=== PATIENT | female | born 2000 | race African-American/Black ===

== ENCOUNTER 2022-03-28 12:21 | Emergency (ER) | payer OTHER, SELFPAY ==
[2022-03-28] VITALS (43 sets, daily range): BP systolic 103–119; BP diastolic 49–80; PULSE 88–144; RESP 18; TEMP 36.4–38.4; O2SAT 97–100; BMI 24.8
--- NOTE | 2022-03-28 12:41 | ED_ITS ---
HPI - General Adult General Date Seen: 03/28/22 Chief complaint: Fever Stated complaint: Dizzy, Fever, Headache Time Seen by Provider: 03/28/22 12:23 Source: patient Mode of arrival: ambulatory Limitations: no limitations History of Present Illness HPI narrative: Patient is a 21-year-old [employer] student who presents for evaluation of fever which started 4 days ago. She notes headache, nausea and vomiting for the past couple of days. She has had some ear pain as well as some shortness of breath. She denies chest pain or cough. She has not had abdominal pain. She has not had neck pain or rash. No easy bruising or bleeding. She has not had sore throat. She is vaccinated for COVID and reports that she has had a negative test at school. She denies urinary symptoms or diarrhea. She did just return back to school from [facility], where she lives. She denies ill contacts there. She has a remote history of malaria, not since she was a child. She did not take medications for malaria. She does note that they have ticks there. She has tried some Tylenol and aspirin and does not feel that that was very helpful. General health is good, she has mild asthma, tried her inhaler on Wednesday but has not used it since. She does not take any other medications. She denies use of tobacco, vaping or other marijuana use. Denies other drug use or significant alcohol use. Related Data Home Medications Medication Instructions Recorded Confirmed No Known Home Medications 03/28/22 03/28/22 Allergies Allergy/AdvReac Type Severity Reaction Status Date / Time No Known Drug Allergies Allergy Verified 03/28/22 12:27 Review of Systems Status of ROS: Reports: 10 or more systems reviewed and unremarkable except as noted in History and below [facility] Social History Smoking Status: Never smoker Do you use any of these nicotine containing products: None Second hand tobacco smoke exposure: No How often do you have a drink containing alcohol: never AUDIT-C Alcohol total score: 0 Non-prescribed substance use: denies use Exam Narrative: Exam Narrative: Vital signs as noted above. In general, an alert, nontoxic young woman, she is slightly tearful, a little bit anxious, but appears not to feel well. Head: Normocephalic, atraumatic. Eyes: Pupils are equal reactive. Extraocular movements are full. Conjunctivae are normal. ENT: Mucous membranes are slightly dry, throat is normal, TMs normal bilaterally. Neck: Supple without meningeal signs or adenopathy. No stridor. Heart: Tachycardic, regular. No murmur. Lungs: Clear bilaterally. No increased work of breathing, crackles or wheezes. Abdomen: Soft and nontender. No organomegaly. Extremities: Well perfused. No edema. No calf tenderness. Pulses intact. Neurologic: Patient is alert and oriented to person and place. Speech is fluent. Face is symmetric. Moves all extremities equally. Affect: Normal. Skin: Warm and dry. Well perfused. No rashes. Const: Vital Signs, click to edit/add: Vital Signs - 24 hr 03/28/22 12:24 03/28/22 12:37 03/28/22 13:39 Temperature 101.1 F H 101 F H 101.2 F H Pulse Rate 111 H Pulse Rate [Right Pulse Oximeter] 144 H Respiratory Rate 18 18 Blood Pressure Blood Pressure [Ri ght Upper Arm] 106/64 Pulse Oximetry 100 98 99 Oxygen Delivery Me thod Room Air Room Air Room Air 03/28/22 13:45 03/28/22 14:00 03/28/22 14:02 Temperature Pulse Rate 111 H 107 H 105 H Pulse Rate [Right Pulse Oximeter] Respiratory Rate Blood Pressure 111/49 L Blood Pressure [Ri ght Upper Arm] Pulse Oximetry 98 98 98 Oxygen Delivery Me thod 03/28/22 14:26 03/28/22 14:30 03/28/22 14:31 Temperature Pulse Rate 107 H 100 100 Pulse Rate [Right Pulse Oximeter] Respiratory Rate Blood Pressure 119/61 Blood Pressure [Ri ght Upper Arm] Pulse Oximetry 97 98 98 Oxygen Delivery Me thod 03/28/22 14:45 03/28/22 15:00 03/28/22 15:02 Temperature Pulse Rate 100 103 H 104 H Pulse Rate [Right Pulse Oximeter] Respiratory Rate Blood Pressure 116/68 Blood Pressure [Ri ght Upper Arm] Pulse Oximetry 98 98 98 Oxygen Delivery Me thod 03/28/22 15:15 03/28/22 15:30 03/28/22 15:31 Temperature Pulse Rate 97 99 105 H Pulse Rate [Right Pulse Oximeter] Respiratory Rate Blood Pressure 119/65 Blood Pressure [Ri ght Upper Arm] Pulse Oximetry 98 98 98 Oxygen Delivery Me thod 03/28/22 15:32 03/28/22 15:45 03/28/22 16:00 Temperature Pulse Rate 106 H 100 96 Pulse Rate [Right Pulse Oximeter] Respiratory Rate Blood Pressure Blood Pressure [Ri ght Upper Arm] Pulse Oximetry 98 99 99 Oxygen Delivery Me thod 03/28/22 16:02 03/28/22 16:17 03/28/22 16:30 Temperature Pulse Rate 97 97 90 Pulse Rate [Right Pulse Oximeter] Respiratory Rate Blood Pressure 113/68 Blood Pressure [Ri ght Upper Arm] Pulse Oximetry 98 98 99 Oxygen Delivery Me thod 03/28/22 16:31 03/28/22 16:45 03/28/22 17:00 Temperature Pulse Rate 89 93 91 Pulse Rate [Right Pulse Oximeter] Respiratory Rate Blood Pressure 115/74 Blood Pressure [Ri ght Upper Arm] Pulse Oximetry 99 98 99 Oxygen Delivery Me thod 03/28/22 17:02 03/28/22 17:03 03/28/22 17:15 Temperature Pulse Rate 92 92 91 Pulse Rate [Right Pulse Oximeter] Respiratory Rate Blood Pressure 119/70 Blood Pressure [Ri ght Upper Arm] Pulse Oximetry 99 99 100 Oxygen Delivery Me thod 03/28/22 17:30 03/28/22 17:31 03/28/22 17:45 Temperature Pulse Rate 98 88 98 Pulse Rate [Right Pulse Oximeter] Respiratory Rate Blood Pressure 103/80 Blood Pressure [Ri ght Upper Arm] Pulse Oximetry 100 99 100 Oxygen Delivery Me thod 03/28/22 18:00 03/28/22 18:01 03/28/22 18:02 Temperature Pulse Rate 92 96 97 Pulse Rate [Right Pulse Oximeter] Respiratory Rate Blood Pressure 115/70 Blood Pressure [Ri ght Upper Arm] Pulse Oximetry 100 100 100 Oxygen Delivery Me thod 03/28/22 18:15 03/28/22 18:30 03/28/22 18:32 Temperature 97.5 F L Pulse Rate 93 98 93 Pulse Rate [Right Pulse Oximeter] Respiratory Rate Blood Pressure 115/69 Blood Pressure [Ri ght Upper Arm] Pulse Oximetry 100 99 100 Oxygen Delivery Me thod 03/28/22 18:45 03/28/22 19:00 03/28/22 19:02 Temperature Pulse Rate 108 H 95 96 Pulse Rate [Right Pulse Oximeter] Respiratory Rate Blood Pressure 104/61 Blood Pressure [Ri ght Upper Arm] Pulse Oximetry 97 100 100 Oxygen Delivery Me thod 03/28/22 19:15 03/28/22 19:30 03/28/22 19:31 Temperature Pulse Rate 101 H 102 H 103 H Pulse Rate [Right Pulse Oximeter] Respiratory Rate Blood Pressure 105/62 Blood Pressure [Ri ght Upper Arm] Pulse Oximetry 100 100 99 Oxygen Delivery Me thod 03/28/22 19:32 Temperature Pulse Rate 102 H Pulse Rate [Right Pulse Oximeter] Respiratory Rate Blood Pressure Blood Pressure [Ri ght Upper Arm] Pulse Oximetry 100 Oxygen Delivery Me thod Documenting provider has reviewed patient's vital signs: yes Course Course Hospital Course: Will recheck a COVID test as well as influenza and RSV, place an IV and give fluids given fairly significant tachycardia. Other labs pending. At this time she does not appear at all toxic, she has been ill for several days, does not have meningeal signs, my suspicion for meningitis is rather low, but will await labs to side in further testing. As labs return, these are most notable for mildly depressed white blood cell count of 3.3 [place] [id number]. Notably, her hemoglobin is normal at 14. Her LFTs were notable for mildly elevated transaminases of an AST of 84 and an ALT of 64, but her bilirubin is normal at 0.9, suggesting absence of hemolysis. Her sodium is mildly low at 130, potassium is 3.3 but BUN is normal at 13 and creatinine is 1. Lactate was 1.5, CRP mildly elevated at 5.6. Urinalysis was notable for trace ketones, 5-10 red cells 2-5 white cells. test was negative. COVID, influenza and RSV were negative. Upon receipt of the platelets, I did add on other testing to further evaluate for possible causes of thrombocytopenia including a peripheral smear, malaria smear, hepatitis panel, Monospot which was negative, Ebstein Mahmood panel, tick panel. Malaria smear is a send out lab pressed him would not return until tomorrow. As such, I felt she would likely be best served at a larger center where labs come back more quickly and where infectious disease would be available, as we do not have easy access to Infectious Disease for consult here. Blood cultures and urine culture are pending. I did not have significant suspicion for sepsis in this patient, given multiple other potential causes for her fever. She was tachycardic on arrival but this improved significantly after L of fluid. Her lactate was normal. Her white blood cell count is low, more suggestive of a viral cause. Fever has been present for about 5 days. I did ultimately speak with [facility] and they agreed with transfer there. I was able to speak with the infectious disease physician on-call there. She agreed with holding off on any kind of antibiotic treatment and awaiting malaria smears. Patient did have Tylenol here as well as Toradol when she came in. Her nausea was improved with Zofran but headache did not show much improvement with the Toradol or Tylenol. At that point in her stay it was not evident that she might be staying in hospital and therefore I had tried some tramadol, which she did have good relief with. She is feeling improved. She had 1 L of saline here. She has been able to drink fluids without any difficulty. She is hungry, I believe we were able to get her something to eat before she left for [facility]. Vital Signs Vital signs: Initial Vital Signs Temperature 101.1 F H 03/28/22 12:24 Temperature Source Temporal Artery Scan 03/28/22 12:24 Pulse Rate 144 H 03/28/22 12:24 Respiratory Rate 18 03/28/22 12:24 Blood Pressure 106/64 03/28/22 12:24 Blood Pressure Mean 78 03/28/22 12:24 Blood Pressure Position Sitting 03/28/22 12:24 Pulse Oximetry 100 03/28/22 12:24 Oxygen Delivery Method 03/28/22 12:24 Vital Signs Temperature 101.1 F H 03/28/22 12:24 Pulse Rate 144 H 03/28/22 12:24 Respiratory Rate 18 03/28/22 12:24 Blood Pressure 106/64 03/28/22 12:24 Pulse Oximetry 100 03/28/22 12:24 Oxygen Delivery Method 03/28/22 12:24 Temperature 97.5 F L 03/28/22 18:15 Pulse Rate 102 H 03/28/22 19:32 Respiratory Rate 18 03/28/22 12:37 Blood Pressure 105/62 03/28/22 19:31 Pulse Oximetry 100 03/28/22 19:32 Oxygen Delivery Method 03/28/22 13:39 Medical Decision Making Lab Data Labs: Lab Results 03/28/22 03/28/22 03/28/22 Range/Units 13:00 13:00 13:00 WBC 3.33 L (4.50-11.00) K/uL RBC 4.89 (4.00-5.20) m/uL Hgb 14.0 (12.0-16.0) gm/dL Hct 40.7 (33.0-51.0) % MCV 83 (80-100) fL MCH 29 (26-34) pg MCHC 34 (32-36) gm/dL RDW Coeff of [place] 11.7 (11.5-15.5) % Plt Count 32 L* (140-440) K/uL Neut % (Auto) 72.1 H (42.0-72.0) % Lymph % (Auto) 19.5 L (20-44) % [place] % (Auto) 6.6 (0.0-11.0) % Eos % (Auto) 0.0 (0.0-7.0) % Baso % (Auto) 0.6 (0.0-3.0) % Neut # (Auto) 2.40 (1.7-7.0) K/uL Lymph # (Auto) 0.60 L (0.90-2.90) K/uL [place] # (Auto) 0.20 (0.00-0.90) K/UL Eos # (Auto) 0.00 (0.00-0.50) K/uL Baso # (Auto) 0.00 (0.00-0.30) K/uL Diff Slide Review Acceptable Review (Acceptable) ESR 2 (2-20) mm/hr Absolute Retic 0.03 (0.03-0.08) # Percent Retic 0.5 (0.5-2.0) % Immature Retic Fraction 3.4 (3.0-15.9) % Retic Hgb Equivalent 23.0 L (29.0-35.0) pg INR (0.91-1.10) APTT (23-33) Seconds VBG pH (7.32-7.43) VBG pCO2 (40-50) mmHG VBG pO2 (25-47) mmHG VBG HCO3 (21-28) mmol/L Sodium 130 L (135-149) mmol/L Potassium 3.3 L (3.6-5.1) mmol/L Chloride 100 (96-114) mmol/L Carbon Dioxide 22 (20-32) mmol/L BUN 13 (5-24) mg/dL Creatinine 1.0 (0.5-1.5) mg/dL Estimated Creat Clear 90.53 Estimated GFR 83 ml/min Glucose 144 H (60-115) mg/dL Lactate (0.5-1.9) mmol/L Calcium 7.7 L (8.4-10.6) mg/dL Total Bilirubin (0.1-1.5) mg/dL Direct Bilirubin (0.0-0.5) mg/dL AST (12-35) U/L ALT (4-35) U/L Alkaline Phosphatase (40-150) U/L Lactate Dehydrogenase (120-246) U/L C-Reactive Protein 5.7 H (0.5-1.0) mg/dL Total Protein (6.0-8.3) g/dL Albumin (3.3-5.0) g/dL Urine Color (Yellow) Urine Appearance (Clear) Urine pH (5.0-8.5) Ur Specific [place] (1.000-1.030) Urine Protein (Negative) Urine Glucose (UA) (Negative) Urine Ketones (Negative) Urine Blood (Negative) Urine Nitrite (Negative) Urine Bilirubin (Negative) Urine Urobilinogen (0.2-1.0) Ur Leukocyte Esterase (Negative) Urine RBC (0-2) Urine WBC (0-5) Ur Squamous Epith Cells (None-Few) Urine Bacteria (None) Urine HCG, Qual (Negative) SARS-CoV-2 (PCR) (Negative) Monoscreen (Negative) Influenza Type A (PCR) (Negative) Influenza Type B (PCR) (Negative) RSV (PCR) (Negative) Group A Strep DNA (Not Detectd) 03/28/22 03/28/22 03/28/22 Range/Units 13:00 13:00 13:00 WBC (4.50-11.00) K/uL RBC (4.00-5.20) m/uL Hgb (12.0-16.0) gm/dL Hct (33.0-51.0) % MCV (80-100) fL MCH (26-34) pg MCHC (32-36) gm/dL RDW Coeff of [place] (11.5-15.5) % Plt Count (140-440) K/uL Neut % (Auto) (42.0-72.0) % Lymph % (Auto) (20-44) % [place] % (Auto) (0.0-11.0) % Eos % (Auto) (0.0-7.0) % Baso % (Auto) (0.0-3.0) % Neut # (Auto) (1.7-7.0) K/uL Lymph # (Auto) (0.90-2.90) K/uL [place] # (Auto) (0.00-0.90) K/UL Eos # (Auto) (0.00-0.50) K/uL Baso # (Auto) (0.00-0.30) K/uL Diff Slide Review (Acceptable) ESR (2-20) mm/hr Absolute Retic (0.03-0.08) # Percent Retic (0.5-2.0) % Immature Retic Fraction (3.0-15.9) % Retic Hgb Equivalent (29.0-35.0) pg INR (0.91-1.10) APTT (23-33) Seconds VBG pH 7.421 (7.32-7.43) VBG pCO2 38 L (40-50) mmHG VBG pO2 28.5 (25-47) mmHG VBG HCO3 25 (21-28) mmol/L Sodium 130 L (135-149) mmol/L Potassium 3.3 L (3.6-5.1) mmol/L Chloride 100 (96-114) mmol/L Carbon Dioxide 23 (20-32) mmol/L BUN 13 (5-24) mg/dL Creatinine 1.0 (0.5-1.5) mg/dL Estimated Creat Clear 90.53 Estimated GFR 83 ml/min Glucose 144 H (60-115) mg/dL Lactate (0.5-1.9) mmol/L Calcium 7.7 L (8.4-10.6) mg/dL Total Bilirubin 0.9 (0.1-1.5) mg/dL Direct Bilirubin 0.2 (0.0-0.5) mg/dL AST 84 H (12-35) U/L ALT 64 H (4-35) U/L Alkaline Phosphatase 55 (40-150) U/L Lactate Dehydrogenase (120-246) U/L C-Reactive Protein 5.6 H (0.5-1.0) mg/dL Total Protein 7.0 (6.0-8.3) g/dL Albumin 3.8 (3.3-5.0) g/dL Urine Color (Yellow) Urine Appearance (Clear) Urine pH (5.0-8.5) Ur Specific [place] (1.000-1.030) Urine Protein (Negative) Urine Glucose (UA) (Negative) Urine Ketones (Negative) Urine Blood (Negative) Urine Nitrite (Negative) Urine Bilirubin (Negative) Urine Urobilinogen (0.2-1.0) Ur Leukocyte Esterase (Negative) Urine RBC (0-2) Urine WBC (0-5) Ur Squamous Epith Cells (None-Few) Urine Bacteria (None) Urine HCG, Qual (Negative) SARS-CoV-2 (PCR) (Negative) Monoscreen Negative (Negative) Influenza Type A (PCR) (Negative) Influenza Type B (PCR) (Negative) RSV (PCR) (Negative) Group A Strep DNA (Not Detectd) 03/28/22 03/28/22 03/28/22 Range/Units 13:00 13:00 13:04 WBC (4.50-11.00) K/uL RBC (4.00-5.20) m/uL Hgb (12.0-16.0) gm/dL Hct (33.0-51.0) % MCV (80-100) fL MCH (26-34) pg MCHC (32-36) gm/dL RDW Coeff of [place] (11.5-15.5) % Plt Count (140-440) K/uL Neut % (Auto) (42.0-72.0) % Lymph % (Auto) (20-44) % [place] % (Auto) (0.0-11.0) % Eos % (Auto) (0.0-7.0) % Baso % (Auto) (0.0-3.0) % Neut # (Auto) (1.7-7.0) K/uL Lymph # (Auto) (0.90-2.90) K/uL [place] # (Auto) (0.00-0.90) K/UL Eos # (Auto) (0.00-0.50) K/uL Baso # (Auto) (0.00-0.30) K/uL Diff Slide Review (Acceptable) ESR (2-20) mm/hr Absolute Retic (0.03-0.08) # Percent Retic (0.5-2.0) % Immature Retic Fraction (3.0-15.9) % Retic Hgb Equivalent (29.0-35.0) pg INR 1.22 H (0.91-1.10) APTT 32 (23-33) Seconds VBG pH (7.32-7.43) VBG pCO2 (40-50) mmHG VBG pO2 (25-47) mmHG VBG HCO3 (21-28) mmol/L Sodium (135-149) mmol/L Potassium (3.6-5.1) mmol/L Chloride (96-114) mmol/L Carbon Dioxide (20-32) mmol/L BUN (5-24) mg/dL Creatinine (0.5-1.5) mg/dL Estimated Creat Clear Estimated GFR ml/min Glucose (60-115) mg/dL Lactate (0.5-1.9) mmol/L Calcium (8.4-10.6) mg/dL Total Bilirubin (0.1-1.5) mg/dL Direct Bilirubin (0.0-0.5) mg/dL AST (12-35) U/L ALT (4-35) U/L Alkaline Phosphatase (40-150) U/L Lactate Dehydrogenase (120-246) U/L C-Reactive Protein (0.5-1.0) mg/dL Total Protein (6.0-8.3) g/dL Albumin (3.3-5.0) g/dL Urine Color (Yellow) Urine Appearance (Clear) Urine pH (5.0-8.5) Ur Specific [place] (1.000-1.030) Urine Protein (Negative) Urine Glucose (UA) (Negative) Urine Ketones (Negative) Urine Blood (Negative) Urine Nitrite (Negative) Urine Bilirubin (Negative) Urine Urobilinogen (0.2-1.0) Ur Leukocyte Esterase (Negative) Urine RBC (0-2) Urine WBC (0-5) Ur Squamous Epith Cells (None-Few) Urine Bacteria (None) Urine HCG, Qual Negative (Negative) SARS-CoV-2 (PCR) Negative SARS-CoV-2 (Negative) Monoscreen (Negative) Influenza Type A (PCR) Negative PCR FLU A (Negative) Influenza Type B (PCR) Negative PCR FLU B (Negative) RSV (PCR) Negative PCR RSV (Negative) Group A Strep DNA (Not Detectd) 03/28/22 03/28/22 03/28/22 Range/Units 14:15 14:45 18:10 WBC (4.50-11.00) K/uL RBC (4.00-5.20) m/uL Hgb (12.0-16.0) gm/dL Hct (33.0-51.0) % MCV (80-100) fL MCH (26-34) pg MCHC (32-36) gm/dL RDW Coeff of [place] (11.5-15.5) % Plt Count (140-440) K/uL Neut % (Auto) (42.0-72.0) % Lymph % (Auto) (20-44) % [place] % (Auto) (0.0-11.0) % Eos % (Auto) (0.0-7.0) % Baso % (Auto) (0.0-3.0) % Neut # (Auto) (1.7-7.0) K/uL Lymph # (Auto) (0.90-2.90) K/uL [place] # (Auto) (0.00-0.90) K/UL Eos # (Auto) (0.00-0.50) K/uL Baso # (Auto) (0.00-0.30) K/uL Diff Slide Review (Acceptable) ESR (2-20) mm/hr Absolute Retic (0.03-0.08) # Percent Retic (0.5-2.0) % Immature Retic Fraction (3.0-15.9) % Retic Hgb Equivalent (29.0-35.0) pg INR (0.91-1.10) APTT (23-33) Seconds VBG pH (7.32-7.43) VBG pCO2 (40-50) mmHG VBG pO2 (25-47) mmHG VBG HCO3 (21-28) mmol/L Sodium (135-149) mmol/L Potassium (3.6-5.1) mmol/L Chloride (96-114) mmol/L Carbon Dioxide (20-32) mmol/L BUN (5-24) mg/dL Creatinine (0.5-1.5) mg/dL Estimated Creat Clear Estimated GFR ml/min Glucose (60-115) mg/dL Lactate 1.5 (0.5-1.9) mmol/L Calcium (8.4-10.6) mg/dL Total Bilirubin (0.1-1.5) mg/dL Direct Bilirubin (0.0-0.5) mg/dL AST (12-35) U/L ALT (4-35) U/L Alkaline Phosphatase (40-150) U/L Lactate Dehydrogenase (120-246) U/L C-Reactive Protein (0.5-1.0) mg/dL Total Protein (6.0-8.3) g/dL Albumin (3.3-5.0) g/dL Urine Color [place] A (Yellow) Urine Appearance Slightly Cloudy A (Clear) Urine pH 6.0 (5.0-8.5) Ur Specific [place] >= 1.030 (1.000-1.030) Urine Protein 3+ A (Negative) Urine Glucose (UA) Negative (Negative) Urine Ketones Trace A (Negative) Urine Blood 1+ A (Negative) Urine Nitrite Negative (Negative) Urine Bilirubin 1+ A (Negative) Urine Urobilinogen 2.0 A (0.2-1.0) Ur Leukocyte Esterase Negative (Negative) Urine RBC 5-10 A (0-2) Urine WBC 2-5 (0-5) Ur Squamous Epith Cells Few (None-Few) Urine Bacteria Few A (None) Urine HCG, Qual (Negative) SARS-CoV-2 (PCR) (Negative) Monoscreen (Negative) Influenza Type A (PCR) (Negative) Influenza Type B (PCR) (Negative) RSV (PCR) (Negative) Group A Strep DNA NOT DETECTED (Not Detectd) 03/28/22 03/28/22 Range/Units 18:10 18:10 WBC (4.50-11.00) K/uL RBC (4.00-5.20) m/uL Hgb (12.0-16.0) gm/dL Hct (33.0-51.0) % MCV (80-100) fL MCH (26-34) pg MCHC (32-36) gm/dL RDW Coeff of [place] (11.5-15.5) % Plt Count (140-440) K/uL Neut % (Auto) (42.0-72.0) % Lymph % (Auto) (20-44) % [place] % (Auto) (0.0-11.0) % Eos % (Auto) (0.0-7.0) % Baso % (Auto) (0.0-3.0) % Neut # (Auto) (1.7-7.0) K/uL Lymph # (Auto) (0.90-2.90) K/uL [place] # (Auto) (0.00-0.90) K/UL Eos # (Auto) (0.00-0.50) K/uL Baso # (Auto) (0.00-0.30) K/uL Diff Slide Review (Acceptable) ESR (2-20) mm/hr Absolute Retic 0.03 (0.03-0.08) # Percent Retic 0.7 (0.5-2.0) % Immature Retic Fraction 1.9 L (3.0-15.9) % Retic Hgb Equivalent 22.5 L (29.0-35.0) pg INR (0.91-1.10) APTT (23-33) Seconds VBG pH (7.32-7.43) VBG pCO2 (40-50) mmHG VBG pO2 (25-47) mmHG VBG HCO3 (21-28) mmol/L Sodium (135-149) mmol/L Potassium (3.6-5.1) mmol/L Chloride (96-114) mmol/L Carbon Dioxide (20-32) mmol/L BUN (5-24) mg/dL Creatinine (0.5-1.5) mg/dL Estimated Creat Clear Estimated GFR ml/min Glucose (60-115) mg/dL Lactate (0.5-1.9) mmol/L Calcium (8.4-10.6) mg/dL Total Bilirubin (0.1-1.5) mg/dL Direct Bilirubin (0.0-0.5) mg/dL AST (12-35) U/L ALT (4-35) U/L Alkaline Phosphatase (40-150) U/L Lactate Dehydrogenase 512 H (120-246) U/L C-Reactive Protein (0.5-1.0) mg/dL Total Protein (6.0-8.3) g/dL Albumin (3.3-5.0) g/dL Urine Color (Yellow) Urine Appearance (Clear) Urine pH (5.0-8.5) Ur Specific [place] (1.000-1.030) Urine Protein (Negative) Urine Glucose (UA) (Negative) Urine Ketones (Negative) Urine Blood (Negative) Urine Nitrite (Negative) Urine Bilirubin (Negative) Urine Urobilinogen (0.2-1.0) Ur Leukocyte Esterase (Negative) Urine RBC (0-2) Urine WBC (0-5) Ur Squamous Epith Cells (None-Few) Urine Bacteria (None) Urine HCG, Qual (Negative) SARS-CoV-2 (PCR) (Negative) Monoscreen (Negative) Influenza Type A (PCR) (Negative) Influenza Type B (PCR) (Negative) RSV (PCR) (Negative) Group A Strep DNA (Not Detectd) Discharge Plan Discharge Prescriptions: No Action No Known Home Medications
[2022-03-28] MEDS: KETOROLAC 15 MG/ML inj IVP (13:06)
[2022-03-28] MEDS: ONDANSETRON 2 MG/ML inj 4 MG IVP (13:06)
[2022-03-28] MEDS: 0.9 % SODIUM CHLORIDE 1000 ml 1,000 ML IV (13:06)
[2022-03-28 13:13] LABS: HCO3 VBG 25 mmol/L (21-28); PCO2 VBG 38 mmHG (40-50); PO2 VBG 28.5 mmHG (25-47); pH VBG 7.421 (7.32-7.43)
[2022-03-28 13:25] LABS: Basophils Percent Auto 0.6 % (0.0-3.0); Hematocrit 40.7 % (33.0-51.0); Immature Granulocytes Pct Auto 1.2 %; Lymphocytes Percent Auto 19.5 % (20-44); Mean Corpuscular HGB Conc 34 gm/dL (32-36); Mean Corpuscular Hemoglobin 29 pg (26-34); Mean Corpuscular Volume 83 fL (80-100); Monocytes Percent Auto 6.6 % (0.0-11.0); Neutrophils Percent Auto 72.1 % (42.0-72.0); RDW Coefficient of Variation % 11.7 % (11.5-15.5); Red Blood Count 4.89 m/uL (4.00-5.20); White Blood Count* 3.33 K/uL (4.50-11.00)
[2022-03-28 13:28] LABS: Albumin* 3.8 g/dL (3.3-5.0); Chloride* 100 mmol/L (96-114)
[2022-03-28 13:29] LABS: Potassium* 3.3 mmol/L (3.6-5.1); Sodium* 130 mmol/L (135-149)
[2022-03-28 13:31] LABS: Est. Creatinine Clearance* 90.53; Estimated Glomerular Filt Rate 83 ml/min
[2022-03-28 13:32] LABS: Alanine Aminotransferase* 64 U/L (4-35); Alkaline Phosphatase* 55 U/L (40-150); Aspartate Amino Transferase* 84 U/L (12-35); Bilirubin Direct* 0.2 mg/dL (0.0-0.5); Bilirubin Total* 0.9 mg/dL (0.1-1.5); Blood Urea Nitrogen* 13 mg/dL (5-24); Calcium* 7.7 mg/dL (8.4-10.6); Carbon Dioxide* 23 mmol/L (20-32); Glucose* 144 mg/dL (60-115)
[2022-03-28] MEDS: ACETAMINOPHEN 500 MG TABLET 1000 MG PO (13:33)
[2022-03-28 13:34] LABS: C Reactive Protein* 5.6 mg/dL (0.5-1.0); Platelet Count* 32 K/uL (140-440); Slide Review Reflex Yes
[2022-03-28 14:02] LABS: Mono Screen* Negative (Negative)
[2022-03-28 14:05] LABS: Slide Review Acceptable Review (Acceptable)
[2022-03-28 14:12] LABS: Immature Reticulocyte Fraction 3.4 % (3.0-15.9); Reticulocyte Percent 0.5 % (0.5-2.0); Reticulocytes Absolute 0.03 # (0.03-0.08)
[2022-03-28 14:15] LABS: INR 1.22 (0.91-1.10); Partial Thromboplastin Time* 32 Seconds (23-33); Prothrombin Time 16.1 Seconds
[2022-03-28 14:32] LABS: Erythrocyte SedimentationRate* 2 mm/hr (2-20)
[2022-03-28 14:35] LABS: Appearance Urine Slightly Cloudy (Clear); Bilirubin Urine 1+ (Negative); Blood Urine 1+ (Negative); Color Urine Orange (Yellow); Glucose Urine Negative (Negative); Ketones Urine Trace (Negative); Leukocyte Esterase Urine Negative (Negative); Nitrite Urine Negative (Negative); Protein Urine 3+ (Negative); Specific Gravity Urine >= 1.030 (1.000-1.030)
[2022-03-28 14:49] LABS: Bacteria Urine Few; Squamous Epithelial Cell Urine Few (None-Few)
[2022-03-28 15:12] LABS: PCR FLU A Negative PCR FLU A (Negative); PCR FLU B Negative PCR FLU B (Negative); PCR RSV Negative PCR RSV (Negative)
[2022-03-28 15:14] LABS: SARS PCR* Negative SARS-CoV-2 (Negative)
[2022-03-28 15:23] LABS: Strep A DNA Probe* NOT DETECTED (Not Detectd)
[2022-03-28] MEDS: TRAMADOL HCL 50 MG TABLET PO (15:26)
[2022-03-28 15:56] LABS: Ur HCG Qualitative* Negative (Negative)
[2022-03-28 16:25] LABS: Chloride* 100 mmol/L (96-114); Potassium* 3.3 mmol/L (3.6-5.1); Sodium* 130 mmol/L (135-149)
[2022-03-28 16:27] LABS: Est. Creatinine Clearance* 90.53; Estimated Glomerular Filt Rate 83 ml/min
[2022-03-28 16:28] LABS: Blood Urea Nitrogen* 13 mg/dL (5-24); Carbon Dioxide* 22 mmol/L (20-32); Glucose* 144 mg/dL (60-115)
[2022-03-28 16:29] LABS: Calcium* 7.7 mg/dL (8.4-10.6)
[2022-03-28 16:31] LABS: C Reactive Protein* 5.7 mg/dL (0.5-1.0)
[2022-03-28 18:21] LABS: Lactate* 1.5 mmol/L (0.5-1.9)
[2022-03-28 18:23] LABS: Immature Reticulocyte Fraction 1.9 % (3.0-15.9); Reticulocyte Hemoglobin Equivi 22.5 pg (29.0-35.0); Reticulocyte Percent 0.7 % (0.5-2.0); Reticulocytes Absolute 0.03 # (0.03-0.08)
[2022-03-28 18:38] LABS: Lactate Dehydrogenase* 512 U/L (120-246)
--- NOTE | 2022-03-28 19:43 | ED.NURSE ---
Pt accepted by Dr. Leon at [facility]. Pt leaves ER via EMS and RN to RN handoff report given to PAGE Newton .
--- NOTE | 2022-03-28 23:04 | ED.NURSE ---
Call from [place] pathologist with critical lab result: malaria positive. Call to [facility] to report malaria case, per [facility] law ([phone]).
[2022-03-31 21:07] LABS: Hep A Ab, IgM Negative (Negative); Hep B Core Ab, IgM Negative (Negative); Hep B Surface Antigen Negative (Negative); Hep C Ab by CIA Index 0.07 IV; Hep C Ab by CIA Interp Negative (Negative)
[2022-04-01 18:36] LABS: EBV Antibody-Early (D)Ag IgG <5.0 U/mL (0.0-10.9)
[2022-04-02 11:18] LABS: Anaplasma phagocyt PCR Not Detected; Babesia microti by PCR Not Detected; Babesia species by PCR Not Detected; Ehrlichia chaffeensis by PCR Not Detected; Ehrlichia ewingii/canis by PCR Not Detected; Ehrlichia muris-like by PCR Not Detected
== END 2022-03-28 19:58 | disposition short-term general hospital (02) ==
PROVIDERS: Emergency Provider Emergency Medicine
DX: R50.9 Fever, unspecified (principal)
CPT/HCPCS: 36415; 80048; 80074; 80076; 81001; 81025; 82803; 83605; 83615; 85025; 85045; 85610; 85651; 85730; 86140; 86308; 86663; 87015; 87040; 87075; 87086; 87207; 87502; 87634; 87635; 87651; 87798; 93005; 96374; 96375; 99284; A9270; J1885; J2405; J7030

== ENCOUNTER 2022-03-28 19:39 | Outpatient (CLI) | payer OTHER, SELFPAY | END 2022-03-28 19:40 | disposition home or self-care (01) | PROVIDERS: Visit Provider Family Medicine | DX: R50.9 Fever, unspecified (principal) | CPT/HCPCS: A0425; A0426 ==

== ENCOUNTER 2023-06-29 22:26 | Emergency (ER) | payer OTHER, SELFPAY ==
[2023-06-29 22:35] VITALS: BP 119/83; PULSE 76; RESP 16; TEMP 36.4; O2SAT 100; BMI 27.4
--- NOTE | 2023-06-30 00:18 | ED.GENADULT ---
HPI - General Adult General Chief complaint: Laceration/Wound Stated complaint: cut right index finger Time Seen by Provider: 06/29/23 23:55 Source: patient Mode of arrival: ambulatory Limitations: no limitations History of Present Illness HPI narrative: 23-year-old female presents to the emergency department for evaluation of laceration to right index finger. 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 She had attempted to open the wine bottle by jamming a pair of scissors down into the [place], but it was 1 of those plastic material type courts and slipped quickly down and cause the scissors to dislodge and cut her index finger. Last tetanus shot was 2016, she is able to pull this up on her phone. She reports full range of motion of the hand, no movement or neurological deficits. The cut is along the pad of the right index finger, no other areas affected. Did have some bleeding but has applied pressure and this has stopped. Did not try taking any Tylenol or ibuprofen. No other areas of injury. States that her past medical history is benign. She graduates from [employer] this week. Nonsmoker. No long-term medications. ROS negative for other generalized, musculoskeletal, skin or neurological changes. Related Data Home Medications Medication Instructions Recorded Confirmed No Known Home Medications 03/28/22 03/28/22 Allergies Allergy/AdvReac Type Severity Reaction Status Date / Time No Known Drug Allergies Allergy Verified 03/28/22 12:27 [facility] Social History Smoking Status: Never smoker Do you use any of these nicotine containing products: None Second hand tobacco smoke exposure: No How often do you have a drink containing alcohol: never AUDIT-C Alcohol total score: 0 Non-prescribed substance use: denies use Exam Const: Vital Signs, click to edit/add: Vital Signs - 24 hr 06/29/23 22:35 Temperature 97.6 F Pulse Rate [Right Pulse Oximeter] 76 Respiratory Rate 16 Blood Pressure [Le ft Upper Arm] 119/83 Pulse Oximetry 100 Oxygen Delivery Me thod Room Air Documenting provider has reviewed patient's vital signs: yes Common normals: no apparent distress General appearance: cooperative, comfortable and well kempt HENMT: Common normals: normocephalic Head and scalp: normocephalic Face and sinus: normal facial exam Eye: General eye: normal appearance of both eyes Resp: Common normals: normal respiratory effort Effort & inspection: able to speak in complete sentences Extremity: Other: Right hand examined. 2.5 cm laceration along the pad of the right index finger from the distal pad but not including the nail bed perfectly down the center of the pad of the right index finger stopping just above the proximal fold of the D IP joint. Depth is full skin thickness, down to the fatty layer, not the muscular layers. Normal flexion, extension, abduction, adduction of the finger with no sensory deficits. Remaining fingers are unaffected. Normal range of motion of wrist. Psych: Appearance: well kempt Attitude: engaged Insight: insight good Judgement: judgment good Skin: Narrative: Other than the right index finger, no other areas of injury Course Course ED Course: wound reapproximates very well, would be a good candidate for Steri-Strip closure. Counseled patient on repair options, recommended Steri-Strips. Procedure: Laceration repair: Wound was cleansed with soapy tap water, then alcohol wipe and then dried. Covered with Mastisol, then to Steri-Strips with good hemostasis and reapproximation. Additional Steri-Strips for reinforcement were used to cover, well tolerated. Hemostatic at time of procedure cessation. Patient counseled on wound care, let fully dry for the next hour. Strips will stay on for the next few days. Once they start to fall off, okay to keep covered with a Band-Aid. Recommended gauze and tape in the interim. Try to keep dry but it is okay for to get slightly wet but do your best to dry completely and do not leave wet compressive flares over the wound. Infection unlikely but counseled on signs and symptoms and presentation if these occur. Okay to use Tylenol and ibuprofen as needed for mild discomfort. Tetanus up-to-date. Follow-up as needed only. Vital Signs Vital signs: Initial Vital Signs Temperature 97.6 F 06/29/23 22:35 Temperature Source Temporal Artery Scan 06/29/23 22:35 Pulse Rate 76 06/29/23 22:35 Pulse Rhythm Regular 06/29/23 22:35 Respiratory Rate 16 06/29/23 22:35 Blood Pressure 119/83 06/29/23 22:35 Blood Pressure Mean 95 06/29/23 22:35 Blood Pressure Position Sitting 06/29/23 22:35 Pulse Oximetry 100 06/29/23 22:35 Oxygen Delivery Method Room Air 06/29/23 22:35 Vital Signs Temperature 97.6 F 06/29/23 22:35 Pulse Rate 76 06/29/23 22:35 Respiratory Rate 16 06/29/23 22:35 Blood Pressure 119/83 06/29/23 22:35 Pulse Oximetry 100 06/29/23 22:35 Oxygen Delivery Method Room Air 06/29/23 22:35 Temperature 97.6 F 06/29/23 22:35 Pulse Rate 76 06/29/23 22:35 Respiratory Rate 16 06/29/23 22:35 Blood Pressure 119/83 06/29/23 22:35 Pulse Oximetry 100 06/29/23 22:35 Oxygen Delivery Method Room Air 06/29/23 22:35 Discharge Plan Discharge Clinical Impression: Finger laceration Patient Disposition: Home w/ Parent or Adult Condition: Improved Instructions: Steristrips (ED) Additional Instructions: as we discussed, Steri-Strips were applied to your wound. These will fully set up within about an hour and will stay on for 5-10 days and allow the wound to heal. It is okay to use the finger but try not to aggressively scrub, get it soaking wet or peel off the strips prematurely. Please make sure they stay on for at least 5 days. If they do fall off near the early and of that, use a Band-Aid to reinforce closure of the wound. It is okay to cover with clean gauze and some tape over the gauze. Try not to tape anything to the strips as removing the tape or sticky products will also remove the tape. Mild throbbing pain can be common. I recommend Tylenol 1000 mg every 6 hours and or ibuprofen 600 mg every 6 hours as needed for discomfort. Infection is very unlikely, but can happen. If you start noticing significant swelling, purulent drainage, significant surrounding redness, you should be re-evaluated. Typically this happens after 2-3 days. There are no signs of tendon injury or any structural damage to the finger, this should heal without complication. Your last tetanus shot was 2016, it should be updated in 2026. Activity Level: Activity as Tolerated Discharge Diet: Regular Prescriptions: No Action No Known Home Medications Follow Up/Referrals: Provider,Not a Local [Primary Care Provider] - Stand Alone Forms: [facility] Info Instructions
== END 2023-06-30 00:43 | disposition home or self-care (01) ==
PROVIDERS: Emergency Provider Family Medicine
DX: S61.210A Laceration without foreign body of right index finger without damage to nail, initial encounter (principal); W26.9XXA Contact with unspecified sharp object(s), initial encounter
CPT/HCPCS: 99282; 99283

== ENCOUNTER 2023-07-04 03:19 | Emergency (ER) | payer OTHER, SELFPAY ==
[2023-07-04 03:24] VITALS: BP 111/65; PULSE 89; RESP 20; TEMP 36.7; O2SAT 99; BMI 26.6
--- NOTE | 2023-07-04 03:30 | ED_ITS ---
HPI - Skin/Abscess/Foreign Bdy General Chief complaint: Skin/Abscess/Foreign Body Stated complaint: right hand finger infection Time Seen by Provider: 07/04/23 03:23 History of Present Illness HPI narrative: Patient is a 23-year-old woman who cut the index finger in her right hand of sev eral days ago and had sutures who presents with mild drainage from the wound. She 3 showers tonight and noted the laceration on the tip of the 2nd digit on the right hand to be slightly the red with a small amount of transudative discharge. She has no significant pain no fevers no chills no night sweats no other significant symptoms. No evidence of wound dehiscence. She is otherwise feeling fine. Related Data Home Medications Medication Instructions Recorded Confirmed No Known Home Medications 03/28/22 03/28/22 Allergies Allergy/AdvReac Type Severity Reaction Status Date / Time No Known Drug Allergies Allergy Verified 03/28/22 12:27 Review of Systems Status of ROS: Reports: 10 or more systems reviewed and unremarkable except as noted in History and below [facility] Medical History (Updated 07/04/23 @ 03:34 by Guillaume Anand MD) No significant past medical history Surgical History (Updated 07/04/23 @ 03:32 by Evgeny Singh RN) No significant past surgical history Social History Smoking Status: Never smoker Do you use any of these nicotine containing products: None Second hand tobacco smoke exposure: No How often do you have a drink containing alcohol: never AUDIT-C Alcohol total score: 0 Non-prescribed substance use: denies use Exam Narrative: Exam Narrative: EXAM GENERAL: Patient appears comfortable and well. EYES: No scleral icterus. LYMPH: No supraclavicular or cervical lymphadenopathy. SKIN: Healing laceration noted on the his 2nd digit palmar surface right hand. EXT: No dependent lower extremity pedal edema. HEART: Regular rate and rhythm with no murmurs, rubs, or gallops. LUNGS: Clear to auscultation bilaterally with no crackles or wheezes. ABD: Soft, non tender, non distended. PSYCH: Good eye contact, speech is not pressured. Const: Vital Signs, click to edit/add: Vital Signs - 24 hr 05/19/24 03:24 Temperature 98.0 F Pulse Rate [Right Pulse Oximeter] 89 Respiratory Rate 20 Blood Pressure [Ri ght Upper Arm] 111/65 Pulse Oximetry 99 Oxygen Delivery Me thod Room Air Course Course ED Course: Patient seen and examined. Vital Signs Vital signs: Initial Vital Signs Temperature 98.0 F 07/04/23 03:24 Temperature Source Temporal Artery Scan 07/04/23 03:24 Pulse Rate 89 07/04/23 03:24 Respiratory Rate 20 07/04/23 03:24 Blood Pressure 111/65 07/04/23 03:24 Blood Pressure Mean 80 07/04/23 03:24 Blood Pressure Position Sitting 07/04/23 03:24 Pulse Oximetry 99 07/04/23 03:24 Oxygen Delivery Method Room Air 07/04/23 03:24 Vital Signs Temperature 98.0 F 07/04/23 03:24 Pulse Rate 89 07/04/23 03:24 Respiratory Rate 20 07/04/23 03:24 Blood Pressure 111/65 07/04/23 03:24 Pulse Oximetry 99 07/04/23 03:24 Oxygen Delivery Method Room Air 07/04/23 03:24 Temperature 98.0 F 07/04/23 03:24 Pulse Rate 89 07/04/23 03:24 Respiratory Rate 20 07/04/23 03:24 Blood Pressure 111/65 07/04/23 03:24 Pulse Oximetry 99 07/04/23 03:24 Oxygen Delivery Method Room Air 07/04/23 03:24 MDM - Skin/Abscess/Foreign Bdy MDM Narrative Medical decision making narrative: Patient presents with a mild transudative drainage from the previously closed laceration on the 2nd digit right hand. No signs of inflammation noted on my exam. No signs of cellulitis. Wounds healing well. Reassurance is given continue current management. Differential diagnosis includies but not limited t o wound infection cellulitis seroma foreign body Discharge Plan Discharge Clinical Impression: Finger laceration Patient Disposition: Home, Self-Care Condition: Stable Instructions: Laceration (ED) Additional Instructions: Twice daily dressing changes Tylenol Motrin Follow-up as needed. Activity Level: No Restrictions Discharge Diet: Regular Prescriptions: No Action No Known Home Medications Follow Up/Referrals: Provider,Not a Local [Primary Care Provider] - Stand Alone [facility]: [facility] Inst[facility]
--- OUTSIDE RECORDS SUMMARY | 2023-07-04 03:37 | XMS_ITS | Clinical Summary ---
Author Name Unknown Organization [facility] Address [place], [place] [address] Care Team Providers [facility] Pharmacy Director Name Role Phone Pcp, No Primary Care Provider Unavailabl e Allergies No known active allergies Medications Medication Sig Dispensed Refills Start Date End Date Status albuterol HFA (PRO-AIR; VENTOLIN; PROVENTIL) 90 mcg/actuation inhaler Inhale 2 Puffs by mouth 4 times daily if needed. Active melatonin 5 mg tab tablet Take 5 mg by mouth at bedtime if needed for Sleep. Active acetaminophen (TYLENOL) 325 mg tabletIndications:Pa in Take one AND one-half Tablets (487.5 mg) by mouth 3 times daily if needed for Pain or Headache. Max acetaminophen dose: 4000mg in 24 hrs. 15 Tablet 04/03/2022 Active ondansetron (ZOFRAN ODT) 4 mg disintegrating tabletIndications:Na usea Place 1 Tablet (4 mg) on the tongue every 8 hours if needed for Nausea/Vomiting. 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 Chest pain Acute pulmonary edema Social History Tobacco Use Types Packs/Day Years Used Date Smoking Tobacco: Never Assessed Social Connections Answer Date Recorded Frequency of Communication with Friends and Fami ly Not on file 05/26/2022 Sex and Gender Information Value Date Recorded Sex Assigned at Not on file Gender Identity Not on file Sexual Orientation Not on file Obstetrics History Last Filed Vital Signs Vital Sign Reading Time Taken Comments Blood Pressure 139/65 04/03/2022 8:14 AM [employer] Pulse 61 04/03/2022 8:25 AM [employer] Temperature 37.2 ??C (98.9 ??F) 04/03/2022 8:14 AM CS T Respiratory Rate 16 04/03/2022 8:14 AM [employer] Oxygen Saturation 97% 04/03/2022 8:14 AM [employer] Inhaled Oxygen Concentration - - Weight 81 kg (178 lb 9.2 oz) 04/01/2022 9:58 AM [employer] Height 172.7 cm (5' 8) 03/29/2022 2:53 AM [employer] Body Mass Index 27.15 03/29/2022 2:53 AM [employer] Plan of Treatment Not on file Advance Directives * Full Code (Latest Code Status on File) Date Activated Date Inactivated Comments 03/31/2022 7:21 AM 04/03/2022 4:25 PM Question Answer Comments Code Status Discussion: Reviewed Preferences * Full Code Date Activated Date Inactivated Comments 03/28/2022 10:33 PM 03/31/2022 7:21 AM Question Answer Comments Code Status Discussion: Unable to Assess Preferences, Provider to review later Care Teams Hospital Pharmacy Director Relationship Specialty Start Date End Date Pcp, No . PCP - General 03/28/22
[2023-07-04 03:39] VITALS: BP 115/70; PULSE 79; RESP 20; TEMP 36.7; O2SAT 99
== END 2023-07-04 03:39 | disposition home or self-care (01) ==
LOC: ED 03:35
PROVIDERS: Emergency Provider Internal Medicine
DX: S61.211D Laceration without foreign body of left index finger without damage to nail, subsequent encounter (principal)
CPT/HCPCS: 99283